=== PATIENT | female | born 1945 | race Caucasian/White ===

== ENCOUNTER 2020-03-03 09:29 | Outpatient (CLI) | payer MEDICARE, SELFPAY ==
[2020-03-03 10:21] LABS: Alanine Aminotransferase 16 U/L (4-35); Albumin Level 3.9 g/dL (3.5-5.1); Alkaline Phosphatase 110 U/L (38-126); Anion Gap 5 mmol/L (8-16); Aspartate Amino Transferase 27 U/L (14-36); Bilirubin,Total 0.5 mg/dL (0.2-1.3); Blood Urea Nitrogen 15 mg/dL (7-17); Calcium 9.1 mg/dL (8.4-10.2); Carbon Dioxide 32 mmol/L (22-30); Chloride 103 mmol/L (98-107); Cholesterol 163 mg/dL (0-200); Estimated Glomerular Filt Rate > 60; Glucose 95 mg/dL (65-105); HDL Direct 46 mg/dL; Potassium 4.2 mmol/L (3.4-5.0); Sodium 140 mmol/L (137-145); Triglycerides 90 mg/dL (<150)
[2020-03-03 10:32] LABS: LDL Cholesterol Direct 95 mg/dL
[2020-03-03 11:06] LABS: Vitamin D 25 Hydroxy 56.6 ng/mL
== END 2020-03-03 09:30 | disposition home or self-care (01) ==
PROVIDERS: PCP Internal Medicine; Visit Provider Internal Medicine
DX: I10 Essential (primary) hypertension (principal); E78.5 Hyperlipidemia, unspecified; E55.9 Vitamin D deficiency, unspecified
CPT/HCPCS: 36415; 80053; 80061; 82306

== ENCOUNTER 2020-04-02 00:49 | Outpatient (CLI) | payer MEDICARE, SELFPAY ==
[2020-04-02 18:32] LABS: SARS-CoV-2 RNA PCR Negative
== END 2020-04-02 00:50 | disposition home or self-care (01) ==
LOC: ANHCOVIDDT 00:49
PROVIDERS: PCP Internal Medicine; Visit Provider Plastic Surgery
DX: Z01.812 Encounter for preprocedural laboratory examination (principal); Z20.828 Contact with and (suspected) exposure to other viral communicable diseases
CPT/HCPCS: 87635; C9803; U0003

== ENCOUNTER 2020-04-06 02:43 | Day surgery (SDC) | payer MEDICARE, SELFPAY ==
[2020-03-24 09:12] VITALS: BMI 24.5
[2020-04-06] VITALS (10 sets, daily range): BP systolic 122–174; BP diastolic 57–74; PULSE 57–69; RESP 12–20; TEMP 37.1; O2SAT 97–100
--- NOTE | 2020-04-06 07:27 | WPDHPUPDATE1 ---
History and Physical Update Update Date/Time: 04/06/20 07:27 History and Physical has been reviewed, including an updated exam of the patient. There are NO changes in the patient's condition. Risks, benefits, and alternatives have been discussed and questions answered. Patient agrees to proceed with procedure.
--- NOTE | 2020-04-06 10:18 | SUR.PREOP ---
1018 dr weller delayed in previous procedure. talked with pt daughter to change arrival time to 1130.
[2020-04-06] MEDS: LIDO 1%/EPINEPHRINE 1:100,000 20 ML VIAL 5 ML INFILTRATE (14:20)
--- NOTE | 2020-04-06 14:39 | SUR.OPER ---
Frozen Section sent with Soto Becerra and received in pathology by Siobhan
[2020-04-06] MEDS: BALANCED SALT SOLN OPHTH IRRIG 30 ML BTL EACH EYE (14:43)
--- NOTE | 2020-04-06 15:34 | PM.OP ---
Procedure Note - Brief Procedure Note - Brief Date of procedure: 04/06/20 Pre-op diagnosis: Neoplasm Rt Dorsal 2nd Metacarpal/BCC Lt Nasal Lob Post-op diagnosis: same Procedure performed: 1.5 cm excision of BCC of left nasal lobule with FS and complex repair 2.0 cm. 1.5 cm excision of neoplasm of right dorsal 2nd metacarpal with simple repair 2.0 cm. Anesthesia: local Surgeon: Vamsi Swan MD Estimated blood loss (mL): 3 Drains: Yes Packing: Yes Pathology: yes Complications: No immediate complications Condition: stable Disposition: same day
--- NOTE | 2020-04-06 19:33 | P.OP_ITS ---
Procedure Note - Detailed Date of procedure: 04/06/20 Pre-op diagnosis: Neoplasm Rt Dorsal 2nd Metacarpal/BCC Lt Nasal Lob Post-op diagnosis: same Procedure performed: 1.5 cm excision of basal cell carcinoma of the left nasal lobule with frozen section and complex repair 2 cm. 1.5 cm excision of cutaneous mass of the right dorsal 2nd metacarpal with simple repair 2 cm Description of procedure: The 2 sites were marked according to the H&P diagram for skin excision. The patient confirmed the sites using air. Each was marked with a pen. She was taken to the operating room and placed supine on the operating table. This procedures performed under local anesthetic. Her base was prepped and draped in usual fashion as was her right dorsal hand. A time- out was held and confirmed. Both sites were infiltrated with 1% lidocaine with epinephrine. A careful incision was marked on the nose for excision of 2 adjacent rough red lesions, 1 of which had been biopsied previously. The 2 mm thick skin specimen was marked at 1 site for 12 o'clock and sent to pathology for frozen section. While at was out the 2nd lesion was removed on the dorsum of the right hand over the 2nd metacarpal. This was roughly 1 cm in diameter. It was taken with a narrow margin through subcutaneous tissue. It was not sent for frozen section. The wound was closed with interrupted 5 0 nylon suture. Report from pathology indicated the 2 lesions were very superficial basal cell carcinoma. Tumor was present but margins were free. The specimen was a cm and half in length but only about 5 mm wide. We were able to undermine the skin around the site up to a cm over the dorsum, lobule and ala permitting suture closure with intradermal 4-0 Vicryl and interrupted 6 0 nylon without distortion to the nose. A Band-Aid was applied to the hand and ointment to the nose. The patient was sent home with instructions in wound care and follow-up no prescriptions were given. Surgeon: Vamsi Swan MD
== END 2020-04-06 16:10 | disposition home or self-care (01) ==
PROVIDERS: PCP Internal Medicine; Visit Provider Plastic Surgery
PROC: (CPT 11642; principal; 2020-04-06 11:30)
PROC: (CPT 11642; 2020-04-06 11:30)
DX: C44.311 Basal cell carcinoma of skin of nose (principal); C44.622 Squamous cell carcinoma of skin of right upper limb, including shoulder
CPT/HCPCS: 11642; 13151; 11622; 88304; 88305; 88331; A9270

== ENCOUNTER 2020-08-18 16:24 | Emergency (ER) | payer OTHER, MEDICARE, SELFPAY ==
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
[2020-08-18 16:54] VITALS: BP 134/55; PULSE 98; RESP 14; TEMP 36.6; O2SAT 98
--- NOTE | 2020-08-18 17:33 | PC.NURSE ---
to xray per WC. Ice applied to knee when triaged.
--- NOTE | 2020-08-18 18:36 | PC.NURSE ---
fresh ice pack given; no acute distress. No definite fx per radiologist report
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
[2020-08-18 19:47] VITALS: BP 134/55; PULSE 84; RESP 15; O2SAT 99
[2020-08-18] MEDS: ACETAMINOPHEN 500 MG TABLET 1000 MG PO (20:38)
--- NOTE | 2020-08-18 20:38 | PC.NURSE ---
Took patient to the bathroom via wheelchair
[2020-08-18 20:45] VITALS: BP 122/67; PULSE 88; RESP 18; O2SAT 100
== END 2020-08-18 20:47 | disposition home or self-care (01) ==
PROVIDERS: Emergency Provider Emergency Medicine; PCP Internal Medicine
DX: M70.51 Other bursitis of knee, right knee (principal); M17.11 Unilateral primary osteoarthritis, right knee; M11.261 Other chondrocalcinosis, right knee; M11.251 Other chondrocalcinosis, right hip; M85.851 Other specified disorders of bone density and structure, right thigh; Z79.82 Long term (current) use of aspirin; V43.52XA Car driver injured in collision with other type car in traffic accident, initial encounter
CPT/HCPCS: 73552; 73560; 73562; 99284; A9270

== ENCOUNTER 2020-11-15 13:30 | Outpatient (CLI) | payer MEDICARE, SELFPAY ==
--- NOTE | ~2020-11-15 | CT_ITS ---
EXAMINATION: CT brain wo/w con DATE: 11/15/2020 14:04 INDICATION: Dizziness and giddiness. TECHNIQUE: Computed tomography (CT) of the head was performed without and with 100 mL Omnipaque 350 i ntravenous contrast. The mA was adjusted according to patient size. Iterative reconstruction techniqu e was employed. The dose-length product was 1059.33 mGy-cm. COMPARISON: None FINDINGS: There are scattered areas of low attenuation in the cerebral white matter. There is no intr acranial hemorrhage, acute infarction, or abnormal intracranial mass lesion. The ventricles are tori l in size. The orbits are normal. The paranasal sinuses are clear. The mastoid air cells are normal. IMPRESSION: 1. Moderate nonspecific cerebral white matter disease, which likely represents chronic small vessel i schemic disease. Reviewed, dictated and finalized at location A. IMPRESSION: 1. Moderate nonspecific cerebral white matter disease, which likely represents chronic small vessel ischemic disease.
[2020-11-15 13:55] LABS: Estimated Glomerular Filt Rate > 60
== END 2020-11-15 13:31 | disposition home or self-care (01) ==
PROVIDERS: PCP Internal Medicine; Visit Provider Internal Medicine
DX: R42 Dizziness and giddiness (principal); R93.0 Abnormal findings on diagnostic imaging of skull and head, not elsewhere classified
CPT/HCPCS: 70470; Q9967

== ENCOUNTER 2020-11-25 10:35 | Outpatient (CLI) | payer MEDICARE, SELFPAY ==
--- NOTE | ~2020-11-25 | US_ITS ---
EXAMINATION: US carotid duplex BI DATE: 11/25/2020 11:08 INDICATION: Dizziness and giddiness. Cerebral atherosclerosis. TECHNIQUE: Grayscale, color Doppler, and pulsed Doppler images of the cervical carotid arteries were obtained. The degree of vessel stenosis is placed in one of the following categories: normal, <50%, 5 0-69%, >=70% but less than near-occlusion, near-occlusion, or total occlusion. Note that percent sten osis relative to normal distal artery lumen diameter is indirectly measured from velocity measurement s as described by Brando, et al. Radiology 2003; [id number]. COMPARISON: None. FINDINGS: RIGHT: The right common carotid artery (CCA) peak systolic velocity (PSV) is 89 cm/s. The right internal car otid artery (ICA) PSV is 74 cm/s. The right ICA end-diastolic velocity (EDV) is 19 cm/s. The right IC A/CCA PSV ratio is 0.8. Grayscale and color Doppler images yield an estimate of <50% diameter reducti on from minimal plaque in the ICA. The external carotid artery (ECA) PSV is 120 cm/s. There is antegr benny flow in the right vertebral artery. LEFT: The left CCA PSV is 90 cm/s. The left ICA PSV is 77 cm/s. The left ICA EDV is 24 cm/s. The left ICA/C CA PSV ratio is 0.8. Grayscale and color Doppler images yield an estimate of <50% diameter reduction from from minimal plaque in the ICA. The ECA PSV is 53 cm/s. There is antegrade flow in the left vert ebral artery. IMPRESSION: 1. <50% stenosis from minimal plaque in the right internal carotid artery. 2. <50% stenosis from minimal plaque in the left internal carotid artery. 3. Cardiac arrhythmia is present. Correlate with EKG. Reviewed, dictated and finalized at location A.
== END 2020-11-25 10:36 | disposition home or self-care (01) ==
PROVIDERS: PCP Internal Medicine; Visit Provider Internal Medicine
DX: R42 Dizziness and giddiness (principal); I65.23 Occlusion and stenosis of bilateral carotid arteries
CPT/HCPCS: 93880

== ENCOUNTER 2021-09-01 13:30 | Emergency (ER) | payer MEDICARE, SELFPAY ==
[2021-09-01] VITALS (14 sets, daily range): BP systolic 137–157; BP diastolic 53–80; PULSE 71–84; RESP 9–24; TEMP 36.3–36.8; O2SAT 97–100
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
--- NOTE | ~2021-09-01 | XR_ITS ---
EXAMINATION: XR hip LT 2V w AP pelvis DATE: 09/01/2021 14:32 INDICATION: Left hip pain post fall TECHNIQUE: Anteroposterior view of the pelvis and anteroposterior and frog-leg lateral views of the l eft hip were obtained. COMPARISON: None. FINDINGS: Alignment is normal. No fracture at the left hip or pelvis. Mild bilateral hip osteoarthritis. Modera te bilateral sacroiliac osteoarthritis. Severe lumbar spondylosis with suggestion of possible age-ind eterminate lumbar compression fractures. IMPRESSION: 1. Mild left hip osteoarthritis with no acute osseous abnormality. 2. Severe lumbar spondylosis with possible age-indeterminate lumbar compression fractures. Reviewed, dictated and finalized at location A.
--- NOTE | 2021-09-01 14:03 | ED.FALL ---
HPI - Fall General Chief Complaint: Fall Stated Complaint: fall, hip injury Time Seen by Provider: 09/01/21 13:42 Source: patient Mode of arrival: ambulatory Limitations: no limitations History of Present Illness HPI Narrative: Patient is a 75-year-old female complaining of left shoulder and left hip pain, currently no pain but when she moves it is 8 out of 10, after she had a ground-level fall while pushing a cart at [employer], there was a pothole and the wheel of the cart went in there and I fell on my left side . Patient denies any head, neck, chest, abdomen, back or any other extremity pain/injury. Patient denies any symptoms prior to the fall. Patient denies any loss of consciousness. Related Data Home Medications Medication Instructions Recorded Confirmed Multivitamin 50 Plus 1 tablet PO DAILY 03/24/20 04/06/20 aspirin 81 mg PO DAILY 03/24/20 04/06/20 biotin-keratin 1 tablet PO DAILY 03/24/20 04/06/20 Allergies Allergy/AdvReac Type Severity Reaction Status Date / Time codeine Allergy Unknown Nausea and Verified 04/06/20 11:49 Vomiting PROPOXYPHENE NAPSYLATE Allergy Unknown STOMACH Uncoded 04/06/20 11:49 UPSET Review of Systems Review of Systems: All systems reviewed & are unremarkable except as noted in HPI and below Constitutional: Constitutional: Denies body ache(s), Denies chills, Denies excessive sweating, Denies fatigue, Denies fever(s), Denies headache(s), Denies lethargy, Denies malaise, Denies weakness and Denies weight loss Eyes: Eyes: Denies blurry vision, Denies change in vision and Denies loss of vision ENT: Denies dizziness, Denies ear discharge, Denies headache(s), Denies lip swelling, Denies epistaxis, Denies nasal congestion, Denies neck pain, Denies throat swelling and Denies tongue swelling Cardiovascular: Cardiovascular: Denies chest pain, Denies chest pain at rest, Denies chest pain with activity, Denies diaphoresis, Denies rapid heart rate, Denies edema, Denies irregular heart rhythm, Denies lightheadedness, Denies palpitations, Denies dyspnea and Denies dyspnea on exertion Respiratory: Respiratory: Denies chest congestion, Denies cough, Denies hemoptysis, Denies dyspnea and Denies dyspnea on exertion Gastrointestinal: Gastrointestinal: Denies abdominal pain, Denies melena, Denies hematochezia, Denies diarrhea, Denies nausea, Denies vomiting and Denies hematemesis Musculoskeletal: Musculoskeletal: Denies joint swelling, Denies neck pain and Denies numbness Neurologic: Denies Abnormal speech present, Denies abnormal gait, Denies confusion, Denies dizziness, Denies headache(s), Denies focal weakness, Denies loss of vision, Denies numbness, Denies Other visual disturbances, Denies Sensory deficit (Neuro) and Denies weakness Psychiatric: Psychiatric: Denies confusion, Denies depression, Denies auditory hallucinations, Denies homicidal ideation and Denies suicidal ideation Endocrine: Endocrine: Denies cold intolerance, Denies excessive sweating, Denies fatigue, Denies heat intolerance and Denies palpitations Hematologic/Lymphatic: Hematologic/Lymphatic: Denies easy bleeding and Denies easy bruising Allergic/Immunologic: Allergic/Immunologic: Denies lip swelling, Denies throat swelling and Denies tongue swelling [facility] Social History Social History Smoking status: Never smoker Alcohol intake: never Substance use: never Spiritual care concerns: No Comments Past medical history: None Family history: None Exam Const: General: cooperative, healthy appearing, comfortable, no acute distress, well developed, alert and awake; No confusion Orientation/consciousness: oriented to person, oriented to place, oriented to time, patient oriented x3 and No confusion Limitations: no limitations HENMT: Head: normal to inspection, normocephalic and atraumatic Ears: hearing grossly normal bilaterally, TM normal on the right and TM tori
[2021-09-01] MEDS: KETOROLAC 30 MG/ML VIAL (*BKC) IM (15:09)
[2021-09-01] MEDS: ACETAMINOPHEN 325 MG TABLET 650 MG PO (15:09)
--- NOTE | 2021-09-01 15:53 | PC.NURSE ---
pt refuses dilaudid and valium, currently sitting in chair pain slightly improved
== END 2021-09-01 16:53 | disposition home or self-care (01) ==
PROVIDERS: Emergency Provider Emergency Medicine; PCP Internal Medicine
DX: S46.912A Strain of unspecified muscle, fascia and tendon at shoulder and upper arm level, left arm, initial encounter (principal); S70.02XA Contusion of left hip, initial encounter; S76.012A Strain of muscle, fascia and tendon of left hip, initial encounter; Z79.82 Long term (current) use of aspirin; W18.39XA Other fall on same level, initial encounter
CPT/HCPCS: 73030; 73502; 96372; 99284; A9270; J1885

== ENCOUNTER 2022-02-21 07:48 | Outpatient (CLI) | payer MEDICARE, SELFPAY ==
[2022-02-21 08:30] LABS: Add Urine Microscopic? YES; Appearance Urine Clear (Clear); Bilirubin Urine Negative (Negative); Blood Urine 1+ (Negative); Color Urine Yellow (Yellow); Glucose Urine UA Negative (Negative); Ketones Urine Negative (Negative); Leukocyte Esterase Ur Negative LEU/UL (NEGATIVE); Mucus Urine Rare /lpf; Nitrate Urine Negative (Negative); Protein Urine Negative (Negative); RBC Urine 0-2 /hpf (0-2); Urobilinogen Urine Negative mg/dL (<2.0); WBC Urine 0-3 /hpf (0-3)
[2022-02-21 08:32] LABS: Alanine Aminotransferase 21 U/L (6-35); Albumin Level 4.3 g/dL (3.5-5.1); Alkaline Phosphatase 98 U/L (38-126); Anion Gap 11 mmol/L (8-16); Aspartate Amino Transferase 27 U/L (14-36); Bilirubin,Total 0.8 mg/dL (0.2-1.3); Blood Urea Nitrogen 14 mg/dL (7-17); Carbon Dioxide 29 mmol/L (22-30); Chloride 100 mmol/L (98-107); Cholesterol 174 mg/dL (0-200); Estimated Glomerular Filt Rate > 60; Glucose 94 mg/dL (65-110); HDL Direct 65 mg/dL; Potassium 3.6 mmol/L (3.4-5.0); Sodium 140 mmol/L (137-145); Triglycerides 74 mg/dL (<150)
[2022-02-21 08:43] LABS: LDL Cholesterol Direct 82 mg/dL
[2022-02-21 09:38] LABS: Vitamin D 25 Hydroxy 76.2 ng/mL
== END 2022-02-21 07:49 | disposition home or self-care (01) ==
LOC: ANHLAB 07:50
PROVIDERS: PCP Internal Medicine; Visit Provider Internal Medicine
DX: I10 Essential (primary) hypertension (principal); E78.5 Hyperlipidemia, unspecified; R32 Unspecified urinary incontinence; Z79.899 Other long term (current) drug therapy
CPT/HCPCS: 36415; 80053; 80061; 81001; 82306

== ENCOUNTER 2023-03-06 08:58 | Emergency (ER) | payer MEDICARE, SELFPAY ==
--- NOTE | ~2023-03-06 | XR_ITS ---
XR wrist RT min 3V 03/06/2023 09:47 Indication: Status post fall with wrist pain Procedure: 4 views right wrist Comparison: No prior studies for comparison. Findings: There is a displaced ulnar styloid avulsion fracture. There is a transverse extra-articular fracture of the distal radial metaphysis with mild dorsal tilt. There are ossific density ventral to the carpal bones on the lateral view, suspicious for avulsion fracture versus chondrocalcinosis. Impression: 1: Transverse nondisplaced extra-articular fracture distal radial metaphysis with mild dorsal tilt. 2: Mildly displaced ulnar styloid avulsion fracture. 2: Chondrocalcinosis. Reviewed, dictated and finalized at location B. Impression: 1: Transverse nondisplaced extra-articular fracture distal radial metaphysis wi th mild dorsal tilt. 2: Mildly displaced ulnar styloid avulsion fracture. 2: Chondrocalcinosis.
--- NOTE | ~2023-03-06 | XR_ITS ---
XR shoulder RT min 2V 03/06/2023 09:47 Indication: Right shoulder pain Procedure: 4 views right shoulder Comparison: No prior studies for comparison. Findings: There is severe osteoarthritis of the right shoulder with superior subluxation, suspicious for rotator cuff tear. No fracture is identified. No soft tissue abnormality. Osteopenia. Impression: 1: Severe polyarticular osteoarthritis of the right shoulder with possible rotator cuff tear. Reviewed, dictated and finalized at location B. Impression: 1: Severe polyarticular osteoarthritis of the right shoulder with possible rota tor cuff tear.
[2023-03-06 09:08] VITALS: BP 169/62; PULSE 69; RESP 12; TEMP 36.4; O2SAT 98
--- NOTE | 2023-03-06 09:35 | ED.UPPEXIN ---
HPI - Extremity Injury (Upper) General Chief Complaint: Extremity Injury, Upper Stated Complaint: R FOREARM PAIN S/P FALL Time Seen by Provider: 03/06/23 09:07 History of Present Illness HPI narrative: 77-year-old female reports for evaluation for ground-level fall that occurred approximately 2 hours prior to arrival. Patient states she was walking throughout her house when she slipped on a puzzle that was on the ground she forgot was there. She is unsure how she landed but believes she landed on her right wrist. She denies hitting her head or losing consciousness. She is complaining of right wrist pain and right shoulder pain, however states the shoulder pain is chronic and due to prior dislocations in the shoulder. Denies other injuries acquired, neck pain, back pain, hip pain or other extremity pain. Related Data Home Medications Medication Instructions Recorded Confirmed aspirin 81 mg tablet,delayed 81 mg PO DAILY 03/24/20 03/06/23 release biotin 10,000 mcg-keratin 100 mg 1 tablet PO DAILY 03/24/20 03/06/23 tablet [id number]-[id number]-[id number] 1 tablet PO DAILY 03/24/20 03/06/23 tablet (Multivitamin 50 Plus tablet) Allergies Allergy/AdvReac Type Severity Reaction Status Date / Time tramadol Allergy Unknown Nausea and Verified 03/06/23 13:41 Vomiting codeine AdvReac Unknown Nausea and Verified 03/06/23 13:41 Vomiting propoxyphene AdvReac Unknown stomach Verified 03/06/23 13:41 upset Review of Systems Review of Systems: CONSTITUTIONAL: Denies fever, chills EYES: Denies visual changes, redness, or discharge. ENT: Denies rhinorrhea, congestion, sore throat, or otalgia. CARDIOVASCULAR: Denies chest pain, palpitations, or edema. RESPIRATORY: Denies cough or dyspnea. GASTROINTESTINAL: Denies abdominal pain, nausea, vomiting, or diarrhea. GENITOURINARY: Denies dysuria or hematuria. SKIN: Denies rash or itching. MUSCULOSKELETAL: See HPI NEUROLOGIC: Denies headache, numbness, dizziness, or weakness. PSYCHIATRIC: Denies anxiety or depression. [facility] Surgical History Surgical History (Updated 03/06/23 @ 13:43 by Marianne Castillo, [facility]) History of Social History Social History (Updated 03/06/23 @ 13:43 by Marianne Castillo [facility]) Smoking status: Never smoker Alcohol intake: never Substance use: never Lack of Transportation: No Lack of Food: Never True Current Housing: I Have Housing Concerned About Future Housing: No Difficulty Paying Gas/Electric Bills: No Difficulty Paying for Meds: No Currently Unemployed: No Education: Decline to Answer Difficulty w/ Childcare or Family Care: No Living arrangements: alone Occupation/Education: retired Spiritual care concerns: No Exam Narrative: GENERAL: Well-appearing, in no acute distress. Patient resting comfortably in exam bed. She is pleasant and conversational. HEAD: Normocephalic NECK: Supple. CHEST: No respiratory distress. Clear to auscultation, no adventitious breath sounds. HEART: Regular rate and rhythm. No murmur heard. Normal peripheral pulses. EXTREMITIES: RUE: Tenderness to the proximal humerus w/o overlying skin changes, edema, erythema or deformity. Full range of motion of shoulder. Tenderness, edema and obvious deformity to the dorsal right wrist. No overlying abrasions, lacerations or erythema. No snuffbox tenderness. Mild ecchymosis to the thenar eminence. Patient able to move fingers, median, ulnar and radial nerves intact. Sensation intact throughout. Compartments soft. Radial pulse 2+. Cap refill less than 2. Limited range of motion of wrist secondary to pain. SKIN: Warm, dry, no rash. NEURO: No focal deficits. Alert and oriented x3. PSYCH: Normal mood and affect. Course Vital Signs Vital signs: Vital Signs Temperature 97.5 F L 03/06/23 09:08 Pulse Rate 69 03/06/23 09:08 Respiratory Rate 12 03/06/23 09:08 Blood Pressure 169/62 H 03/06/23 0
[2023-03-06] MEDS: ACETAMINOPHEN 325 MG TABLET 650 MG PO (09:49)
== END 2023-03-06 11:25 | disposition home or self-care (01) ==
PROVIDERS: Emergency Provider Physician Assistant; PCP Internal Medicine
DX: S52.551A Other extraarticular fracture of lower end of right radius, initial encounter for closed fracture (principal); S52.611A Displaced fracture of right ulna styloid process, initial encounter for closed fracture; S46.001A Unspecified injury of muscle(s) and tendon(s) of the rotator cuff of right shoulder, initial encounter; Z79.82 Long term (current) use of aspirin; M11.231 Other chondrocalcinosis, right wrist; W01.0XXA Fall on same level from slipping, tripping and stumbling without subsequent striking against object, initial encounter
CPT/HCPCS: 29125; 73030; 73110; 99284; A4565; A9270

== ENCOUNTER 2023-07-23 09:43 | Outpatient (CLI) | payer MEDICARE, SELFPAY ==
--- NOTE | 2023-07-23 11:30 | NEURO_ITS ---
Impression: # Non-diabetic complains of numbness of right hand. History of wrist fracture and status post casting.. # Sensory Carpal Tunnel Syndrome bilaterally. # No ulnar neuropathy. # Needle/EMG exam without fibs but decreased motor unit potentials in left APB and ADM. # Clinical correlation recommended. Nerve Conduction Studies Anti Sensory Summary Table Stim Site NR Peak (ms) P-T Amp (?V) Site1 Site2 Delta-P (ms) Dist (cm) Jareth (m/s) Left Median Anti Sensory (2-3nd Digit) Wrist 3.4 35.3 Wrist 2-3nd Digit 3.4 14.0 41 Wrist 3.4 34.1 Wrist 2-3nd Digit 3.4 14.0 41 Right Median Anti Sensory (2-3nd Digit) Wrist 3.3 42.2 Wrist 2-3nd Digit 3.3 14.0 42 Wrist 5.5 30.9 Wrist 2-3nd Digit 3.3 14.0 42 Left Radial Anti Sensory (Base 1st Digit) Wrist 2.0 49.4 Wrist Base 1st Digit 2.0 0.0 Right Radial Anti Sensory (Base 1st Digit) Wrist 2.8 22.7 Wrist Base 1st Digit 2.8 0.0 Left Ulnar Anti Sensory (5th Digit) Wrist 2.8 45.8 Wrist 5th Digit 2.8 14.0 50 Right Ulnar Anti Sensory (5th Digit) Wrist 2.6 34.9 Wrist 5th Digit 2.6 14.0 54 Motor Summary Table Stim Site NR Onset (ms) O-P Amp (mV) Site1 Site2 Delta-0 (ms) Dist (cm) Jareth (m/s) Left Median Motor (Abd Poll Brev) Wrist 3.8 1.8 Elbow Wrist 4.5 27.0 60 Elbow 8.3 2.5 Right Median Motor (Abd Poll Brev) Wrist 3.3 1.9 Elbow Wrist 5.2 29.0 56 Elbow 8.5 0.7 Left Ulnar Motor (Abd Dig Minimi) Wrist 2.7 5.1 A Elbow Wrist 4.5 27.0 60 A Elbow 7.2 4.0 Right Ulnar Motor (Abd Dig Minimi) Wrist 2.5 5.2 A Elbow Wrist 4.8 28.0 58 A Elbow 7.3 3.7 F Wave Studies NR F-Lat (ms) L-R F-Lat (ms) Left Median (Mrkrs) (Abd Poll Brev) 28.97 1.95 Right Median (Mrkrs) (Abd Poll Brev) 27.02 1.95 Left Ulnar (Mrkrs) (Abd Dig Min) 27.27 0.10 Right Ulnar (Mrkrs) (Abd Dig Min) 27.36 0.10 EMG Side Muscle Nerve Root Ins Act Fibs Amp Dur Recrt Comment Right 1stDorInt Ulnar C8-T1 Nml Nml Nml Nml Nml Right Ext Indicis Radial (Post Int) C7-8 Nml Nml Nml Nml Nml Right Ext Digitorum Radial (Post Int) C7-8 Nml Nml Nml Nml Nml Right BrachioRad Radial C5-6 Nml Nml Nml Nml Nml Right PronatorTeres Median C6-7 Nml Nml Nml Nml Nml Right Abd Poll Brev Median C8-T1 Nml Nml Nml Nml Nml Right ABD Dig Min Ulnar C8-T1 Nml Nml Nml Nml Nml Left 1stDorInt Ulnar C8-T1 Nml Nml Nml Nml Nml Left Ext Indicis Radial (Post Int) C7-8 Nml Nml Nml Nml Nml Left Ext Digitorum Radial (Post Int) C7-8 Nml Nml Nml Nml Nml Left BrachioRad Radial C5-6 Nml Nml Nml Nml Nml Left PronatorTeres Median C6-7 Nml Nml Nml Nml Nml Left Abd Poll Brev Median C8-T1 Nml Nml Nml Nml +1 Left ABD Dig Min Ulnar C8-T1 Nml Nml Nml Nml +1 Left Abd Poll Long Radial (Post Int) C7-8 Nml Nml Nml Nml Nml Left ExtCarUln Radial (Post Int) C7-8 Nml Nml Nml Nml Nml Right Abd Poll Long Radial (Post Int) C7-8 Nml Nml Nml Nml Nml Right ExtCarUln Radial (Post Int) C7-8 Nml Nml Nml Nml Nml MTDD
== END 2023-07-23 09:44 | disposition home or self-care (01) ==
PROVIDERS: PCP Internal Medicine; Visit Provider Orthopaedic Surgery
DX: G56.03 Carpal tunnel syndrome, bilateral upper limbs (principal)
CPT/HCPCS: 95886; 95911

== ENCOUNTER 2023-07-30 10:51 | Outpatient (CLI) | payer MEDICARE, SELFPAY ==
--- NOTE | ~2023-07-30 | XR_ITS ---
EXAMINATION: XR wrist LT min 3V DATE: 07/30/2023 11:19 INDICATION: Left wrist pain TECHNIQUE: Posteroanterior, ulnar deviation, oblique, and lateral views of the left wrist were obtain ed. COMPARISON: None available FINDINGS: Bone alignment is normal. There is no fracture. There is mild osteoarthritis at the triscap he joint and moderate osteoarthritis at the first carpal metacarpal joint. Mild osteoarthritis is not ed in the first through third metacarpophalangeal joints. IMPRESSION: 1. Osteoarthritis without acute osseous abnormality. Reviewed, dictated and finalized at location F.
== END 2023-07-30 10:52 | disposition home or self-care (01) ==
LOC: ANHIMG 10:56
PROVIDERS: PCP Internal Medicine; Visit Provider Plastic Surgery
DX: M19.032 Primary osteoarthritis, left wrist (principal)
CPT/HCPCS: 73110

== ENCOUNTER 2023-08-02 01:35 | Day surgery (SDC) | payer MEDICARE, SELFPAY ==
--- NOTE | 2023-08-01 15:52 | PC.NURSE ---
Report to the Outpatient Waiting Room, entrance under the green pavilion located off [facility], at time _1230 on date __08/02/23 . Planned Procedure Time: __1330 . Time changes happen often and if your time is changed the preop area will call you the afternoon before. - You and your visitor will be asked to self-screen and do not enter if you have any COVID symptoms. - A mask is optional within the hospital at this time. MAY HAVE LIGHT BREAKFAST MORNING OF SURGERY Take the following medications with a SIP of water the morning of surgery: ____ROUTINE MORNING MEDICATIONS DO NOT STOP ANY OF YOUR OTHER PRESCRIPTION MEDICATIONS PRIOR TO SURGERY ?EXCEPT THE FOLLOWING Medications to discontinue per physician NONE Please no make-up, nail hungarian, hairspray, perfume, deodorant, or body powder the day of surgery. No jewelry (including any body piercings) or valuables the day of surgery, leave them at home. Please take a shower or bath the night before, or the morning of, surgery with an antibacterial soap. Wear comfortable, loose fitting clothing. Children are encouraged to wear pajamas. - Jewelry must be removed prior to entering the operating room. Rings and piercings that are not removed may be cut off. - The hospital will not accept responsibility for valuables. - Please leave all valuables, including medications, at home the day of surgery. MAY DRIVE YOURSELF HOME-LOCAL ANESTHESIA If you are going home after surgery, a licensed medical delivery driver must drive you home. - NO public transportation without another adult if you receive anesthesia. - We recommend that an adult stay with you for 24 hours following discharge. - We also recommend that you do not drive, make important decision, drink alcoholic beverages, or take any drugs that were not prescribed by your health care provider for at least 24 hours after your discharge time.MAY Follow any additional instructions given to you from your surgeon. If you or anyone in your household have experienced Covid symptoms in the past week, please notify your surgeon or the nurse liaison at the phone number below for possible testing. Telephone instructions given to ___PATIENT and asked if any additional questions and then verbalized understanding. Patient advised to call surgeon office or pre surgery nurse liaison [phone] if any additional questions.
[2023-08-01 15:56] VITALS: BMI 25.4
[2023-08-02 12:20] VITALS: BP 166/68; PULSE 72; RESP 16; TEMP 36.6; O2SAT 99
--- NOTE | 2023-08-02 12:20 | WPDHPUPDATE1 ---
History and Physical Update Update Date/Time: 08/02/23 12:20 History and Physical has been reviewed, including an updated exam of the patient. There are NO changes in the patient's condition. Risks, benefits, and alternatives have been discussed and questions answered. Patient agrees to proceed with procedure.
[2023-08-02 12:49] VITALS: BP 166/71; PULSE 63; RESP 16; O2SAT 98
[2023-08-02] MEDS: LIDO 1%/EPINEPHRINE 1:100,000 20 ML VIAL 3 ML INFILTRATE (12:58)
[2023-08-02 12:59] VITALS: BP 161/71; PULSE 67; RESP 16; O2SAT 96
[2023-08-02] MEDS: BACITRACIN OINTMENT 15 GM TUBE 1 APPLIC TOPICAL (13:06)
[2023-08-02 13:09] VITALS: BP 149/58; RESP 16; O2SAT 97
[2023-08-02 13:13] VITALS: BP 143/60; PULSE 63; RESP 17; O2SAT 100
--- NOTE | 2023-08-02 13:17 | W.PM.PROC2 ---
Procedure Note - Detailed Date of Procedure 08/02/23 Pre-op Diagnosis right carpal tunnel syndrome Post-op Diagnosis Same Procedure Performed Right open carpal tunnel release local Surgeon Vamsi Swan MD Anesthesia Local Description of Procedure The right volar wrist was marked with the patient's consent in the holding area. She was taken to the operating room placed supine on the operating table. The time-out was held and confirmed. The right upper extremity was prepped and draped in usual fashion. The site was marked for the incision and infiltrated with 1% lidocaine with epinephrine. Adequate anesthesia was obtained. No tourniquet was used. The incision was made as marked and blunt dissection through the subcutaneous tissue revealed the palmar aponeurosis. Retractors helped control bleeding into the wound. The 15 blade was used to incise the palmar aponeurosis and the transverse retinaculum. Under 3 point retraction the retinaculum was divided distally and proximally for complete release. There was no unusual anatomy noted. A couple sites along the wall were cauterized. The skin wound was closed with interrupted 5 0 nylon suture. Our usual bandage was applied. The patient is discharged in stable condition with instructions in wound care and follow-up. She preferred no prescriptions for pain medicine. Estimated Blood Loss 2 IV Fluids 0 Drains No Packing No Pathology None sent Complications No immediate complications Condition Stable Disposition Same day
[2023-08-02 13:34] VITALS: BP 141/58; PULSE 59; RESP 18; O2SAT 100
== END 2023-08-02 13:39 | disposition home or self-care (01) ==
PROVIDERS: PCP Internal Medicine; Visit Provider Plastic Surgery
PROC: (CPT 64721; principal; 2023-08-02 13:30)
DX: G56.01 Carpal tunnel syndrome, right upper limb (principal)
CPT/HCPCS: 64721